=== PATIENT | female | born 1980 | race Caucasian/White ===

== ENCOUNTER 2024-12-13 10:13 | Emergency (ER) | payer MEDICARE, MEDICAID, SELFPAY ==
[2024-12-13 10:38] VITALS: BP 139/91; PULSE 81; RESP 15; TEMP 36.7; O2SAT 95; BMI 52.4
--- NOTE | 2024-12-13 11:59 | PC.NURSE ---
Addendum entered by Christine Mari R.N. 12/13/24 12:08: patient has rapid pressured speech. Original Note: patient discussing she goes to [facility] and receives fentanyl patch mcg every three days, patient states she requested to be weaned off the medication because a family from a fentanyl overdose patient states the clinic sends her medicine to the wrong pharmacy, she has requested a new one (old is [facility] in [place], patient states she wants to switch. patient also states she has conflicts with her 16 yo daughter (has ODD) patient does see Dr Ortiz for mental health at [facility].
[2024-12-13 12:27] LABS: Culture Indicated Urine Specimen Cultured
--- NOTE | 2024-12-13 13:21 | CM.SWNOTE ---
ED DIE CLEANER Note Patient is 44 y/o female who presents to the ED per recommendation from Psychiatrist's office due to concern that patient's is withdrawing from pain medication. Patient's Psychiatrist is Dr. Ortiz, patient has hx of Borderline Personality Disorder, JOHANN and Panic Disorder. Per EMR patient has significant hx of life stressors and trauma. DIE CLEANER enters room with RN and DIE CLEANER introduces self. Patient states she does not like sales service representative or social workers. Patient asks DIE CLEANER to leave. Patient gives consent to contact Dr. Ortiz's office, DIE CLEANER calls Dr. Ortiz's office and speaks with retail sales manager Geoffrey who reports that they recommended that patient present to ED due to concern for withdrawal symptoms. ED provider meets with patient and requests to speak with Dr. Ortiz as patient was not listening to ED provider's recommendations, it is reported that patient fired her PCP and does not trust physicians but trusts Dr. Ortiz. Dr. Ortiz presents to ED and meets with patient, patient is agreeable to plan. Patient to discharge to home upon medical clearance with outpatient follow up. Charlotte Perez, SLASHER OPERATOR
--- NOTE | 2024-12-13 13:38 | PM.CN.IH.1 ---
History of Present Illness Consult details Chief complaint: PSYCH/POTENTIAL OPIOID WITHDRAWAL Meds Home Medications and Allergies Home Medications ?Medication ?Instructions ?Recorded ?Confirmed ?Type cholecalciferol (vitamin D3) 25 2,000 unit PO DAILY 02/03/19 12/16/23 History mcg (1,000 unit) chewable tablet multivitamin 2 tab PO DAILY 02/03/19 12/16/23 History pramipexole 1 mg tablet 1 mg PO DAILY 02/03/19 12/16/23 History vitamin B complex (B Complex 1 1 tab PO DAILY 02/03/19 12/16/23 History tablet) omeprazole magnesium 20 mg 20 mg PO DAILY 06/27/19 12/16/23 History tablet,delayed release (Prilosec OTC) ascorbic acid (vitamin C) 500 mg 1,000 mg PO 01/24/20 12/16/23 History capsule naproxen 500 mg tablet 500 mg PO BID 01/30/21 12/16/23 History gabapentin 600 mg tablet 1,200 mg PO TID 12/16/23 History methocarbamol 500 mg tablet 750 mg PO BID PRN muscle pain 12/16/23 12/16/23 History fentanyl transdermal 06/16/24 History oxycodone 5 mg tablet 7.5 mg PO .COMPLEX PRN 06/16/24 History quetiapine 100 mg tablet 200 mg (2 x 100 mg) PO BEDTIME #60 07/12/24 Rx Held on 10/24/24. tabs Instructions: too sedating quetiapine 50 mg tablet 50 mg PO BID #60 tabs 07/12/24 Rx Held on 10/24/24. Instructions: too sedating with fentanyl clonazepam 2 mg tablet 2 mg PO BID PRN severe anxiety #60 10/24/24 10/24/24 Rx tabs duloxetine 60 mg capsule,delayed 60 mg PO BID #180 caps 10/24/24 10/24/24 Rx release fluoxetine 20 mg capsule (Prozac) 60 mg (3 x 20 mg) PO DAILY #270 10/24/24 10/24/24 Rx caps hydroxyzine HCl 25 mg tablet 50 mg (2 x 25 mg) PO TID PRN panic 10/24/24 10/24/24 Rx attacks #180 tabs Allergies Allergy/AdvReac Type Severity Reaction Status Date / Time bupropion Allergy Severe ITCHING Verified 12/13/24 10:38 prednisone Allergy Severe extreme Verified 12/13/24 10:38 itching Sulfa (Sulfonamide Allergy Intermediate rash, Verified 12/13/24 10:38 Antibiotics) burning ethinyl estradiol (From AdvReac Severe anaphylaxis Verified 12/13/24 10:38 Seasonale contraceptive) ketamine AdvReac Severe Agitated Verified 12/13/24 10:38 levonorgestrel (From AdvReac Severe anaphylaxis Verified 12/13/24 10:38 Seasonale contraceptive) naltrexone AdvReac Severe difficulty Verified 12/13/24 10:38 breathing - requiring CPAP during waking hours Exam Vital Signs (past 8 hours): - 12/13/24 10:38 Temperature 98.1 F Pulse Rate 81 Respiratory Rate 15 Blood Pressure 139/91 H Pulse Oximetry 95 Oxygen Delivery Method Room Air Oxygen Delivery Method Room Air Objective Labs Labs: Laboratory Results - last 24 hr 12/13/24 11:56 Urine RBC None seen Urine WBC 1-5/hpf Ur Squamous Epith Cells 5-10 /hpf H Urine Bacteria Many (>30) H Ur Culture Indicated? Specimen cultured Vol Urine Centrifuged 10ml (spun) [facility] Medical History (Updated 09/23/22 @ 12:58 by SHELBY Stevenson) Borderline personality disorder Tobacco & Substance Use Smoking Status: Current every day smoker Assessment & Plan Time-Based Coding :: [TOTAL MINUTES] spent with patient and on the chart (including review of chart, obtaining history, exam, reviewing outside data, placing orders, documenting exam and treatment plan, and counseling patient) on [DATE].
--- NOTE | 2024-12-13 14:15 | ED.PSYCH ---
HPI - Psych General Chief Complaint: Toxicology Problem Stated Complaint: PSYCH/POTENTIAL OPIOID WITHDRAWAL Time Seen by Provider: 12/13/24 10:35 Source: patient Mode of arrival: Wheelchair History of Present Illness HPI Narrative: 44-year-old female history of borderline personality disorder currently upset today due to being discharged from chronic pain management for being tapered off of fentanyl and oxycodone. She has fired her family doctor over disagreement of diagnosis of schizophrenia. She denies HI, SI, hearing voices or seeing things. She is argumentative, upset, and feels no one is listening to her. Other than what is stated 14 point review of system is negative. Related Data Home Medications ?Medication ?Instructions ?Recorded ?Confirmed cholecalciferol (vitamin D3) 25 2,000 unit PO DAILY 02/03/19 12/16/23 mcg (1,000 unit) chewable tablet multivitamin 2 tab PO DAILY 02/03/19 12/16/23 pramipexole 1 mg tablet 1 mg PO DAILY 02/03/19 12/16/23 vitamin B complex (B Complex 1 1 tab PO DAILY 02/03/19 12/16/23 tablet) omeprazole magnesium 20 mg 20 mg PO DAILY 06/27/19 12/16/23 tablet,delayed release (Prilosec OTC) ascorbic acid (vitamin C) 500 mg 1,000 mg PO 01/24/20 12/16/23 capsule naproxen 500 mg tablet 500 mg PO BID 01/30/21 12/16/23 gabapentin 600 mg tablet 1,200 mg PO TID 12/16/23 methocarbamol 500 mg tablet 750 mg PO BID PRN muscle pain 12/16/23 12/16/23 fentanyl transdermal 06/16/24 oxycodone 5 mg tablet 7.5 mg PO .COMPLEX PRN 06/16/24 Previous Rx's ?Medication ?Instructions ?Recorded quetiapine 100 mg tablet 200 mg (2 x 100 mg) PO BEDTIME #60 07/12/24 Held on 10/24/24. tabs Instructions: too sedating quetiapine 50 mg tablet 50 mg PO BID #60 tabs 07/12/24 Held on 10/24/24. Instructions: too sedating with fentanyl clonazepam 2 mg tablet 2 mg PO BID PRN severe anxiety #60 10/24/24 tabs duloxetine 60 mg capsule,delayed 60 mg PO BID #180 caps 10/24/24 release fluoxetine 20 mg capsule (Prozac) 60 mg (3 x 20 mg) PO DAILY #270 10/24/24 caps hydroxyzine HCl 25 mg tablet 50 mg (2 x 25 mg) PO TID PRN panic 10/24/24 attacks #180 tabs Allergies Allergy/AdvReac Type Severity Reaction Status Date / Time bupropion Allergy Severe ITCHING Verified 12/13/24 10:38 prednisone Allergy Severe extreme Verified 12/13/24 10:38 itching Sulfa (Sulfonamide Allergy Intermediate rash, Verified 12/13/24 10:38 Antibiotics) burning ethinyl estradiol (From AdvReac Severe anaphylaxis Verified 12/13/24 10:38 Seasonale contraceptive) ketamine AdvReac Severe Agitated Verified 12/13/24 10:38 levonorgestrel (From AdvReac Severe anaphylaxis Verified 12/13/24 10:38 Seasonale contraceptive) naltrexone AdvReac Severe difficulty Verified 12/13/24 10:38 breathing - requiring CPAP during waking hours Review of Systems Review of Systems ROS Unobtainable: All systems reviewed & are unremarkable except as noted in HPI and below Patient History Medical History (Updated 12/13/24 @ 14:22 by Primitivo Johns, ) Borderline personality disorder Social History Smoking Status: Current every day smoker Smoking Status: Current every day smoker Exam Narrative Exam Narrative: GENERAL: [84] year old patient appears stated age. Well-developed patient, in mild distress. HEAD: Atraumatic. Normocephalic. EYES: Pupils equal round and reactive. Extraocular motions intact. No scleral icterus. No injection or drainage. ENT: Nose without bleeding, purulent drainage. Throat without erythema, tonsillar hypertrophy or exudate. Airway patent. NECK: Trachea midline. Non tender CARDIOVASCULAR: Regular rate and rhythm without murmurs, gallops, or rubs. RESPIRATORY: Clear to auscultation. Breath sounds equal bilaterally. No wheezes, rales, or rhonchi. GASTROINTESTINAL: Abdomen soft, non-tender, nondistended. EXTREMITIES: No edema or joint tenderness. BACK: Nontender without deformity or crepitance. No flank tenderness. NEURO: AOx3. SKIN: No rash or erythema of visible areas Initial Vital Signs Initial Vital Signs: Vital Signs Temperature 98.1 F 12/13/24 10:38 Pulse Rate 81 12/13/24 10:38 Respiratory Rate 15 12/13/24 10:38 Blood Pressure 139/91 H 12/13/24 10:38 Pulse Oximetry 95 12/13/24 10:38 Oxygen Delivery Method Room Air 12/13/24 10:38 Psych Appearance: grossly normal Mental Status: mental status grossly normal Speech and Movement: speech and movement normal Mood: irritable mood Affect: irritable affect Attitude: cooperative Thought Content: normal Judgment: fair Course Orders Ordered: ED Orders 12/13/24 10:46 Consult to METAL FINISH INSPECTOR - Car Body Designer Stat 12/13/24 11:56 Urine Culture Stat Urine Microscopic Stat Vital Signs Vital signs: Vital Signs - 8 hr 12/13/24 10:38 Temperature 98.1 F Pulse Rate 81 Respiratory Rate 15 Blood Pressure 139/91 H Pulse Oximetry 95 Oxygen Delivery Method Room Air MDM - Psych Lab Data Labs: Lab Results 12/13/24 Range/Units 11:56 Urine RBC None seen (0-5/HPF) Urine WBC 1-5/hpf (0-5/HPF) Ur Squamous Epith Cells 5-10 /hpf H (0-5/HPF) Urine Bacteria Many (>30) H (None) Ur Culture Indicated? Specimen cultured Vol Urine Centrifuged 10ml (spun) Point of Care Testing Test Results Negative Urine Dip Bedside Urine Glucose Negative Bedside Urine Bilirubin - Negative Bedside Urine Ketone - Negative Urine Specific [place] 1.010 Bedside Urine Occult Blood - Negative Bedside Urine pH 6.0 Bedside Urine Protein - Negative Bedside Urine Urobilinogen - Negative Bedside Urine Nitrite - Negative Bedside Urine Leukocytes + 70 Esterase MDM Narrative Medical decision making narrative: Vital signs, nurse triage note, medication list, previous ER visits, all imaging studies reviewed. Dr. Ortiz as graciously seen patient and in the ER ok for d/c to f/u with him outpatient appointment next week as previously scheduled. Discharge Plan Departure Patient Disposition: Home Clinical Impression: Borderline personality disorder Instructions: Borderline Personality Disorder Activity Restrictions/Additional Instructions: Return with new or worsening symptoms. Follow up with Dr. Joseph at your scheduled appointment. Prescriptions: No Action methocarbamol 500 mg tablet 750 mg PO BID PRN (Reason: muscle pain) Prilosec OTC 20 mg tablet,delayed release (DR/EC) 20 mg PO DAILY ascorbic acid (vitamin C) 500 mg capsule 1,000 mg PO naproxen 500 mg tablet 500 mg PO BID pramipexole 1 mg tablet 1 mg PO DAILY multivitamin tablet,chewable 2 tab PO DAILY cholecalciferol (vitamin D3) 1,000 unit tablet,chewable 2,000 unit PO DAILY vitamin B complex [B Complex 1] tablet 1 tab PO DAILY gabapentin 600 mg tablet 1,200 mg PO TID Rx Instructions: Take with 400 mg cap for dose of 1000 mg. clonazepam 2 mg tablet 2 mg PO BID PRN (Reason: severe anxiety) Qty: 60 0RF duloxetine 60 mg capsule,delayed release(DR/EC) 60 mg PO BID Qty: 180 3RF fluoxetine [Prozac] 20 mg capsule 60 mg PO DAILY Qty: 270 3RF Rx Instructions: Take with food hydroxyzine HCl 25 mg tablet 50 mg PO TID PRN (Reason: panic attacks) Qty: 180 3RF fentanyl transdermal oxycodone 5 mg tablet 7.5 mg PO .COMPLEX PRN Rx Instructions: 7.5 mg orally PRN; quetiapine 100 mg tablet 200 mg PO BEDTIME Qty: 60 2RF quetiapine 50 mg tablet 50 mg PO BID Qty: 60 2RF Referrals: Isidoro Hebert DO [Primary Care Provider, Family Practice] Stand Alone Forms: Patient Portal/API
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
== END 2024-12-13 14:25 | disposition home or self-care (01) ==
PROVIDERS: Emergency Provider Family Medicine; PCP Family Medicine
DX: F60.3 Borderline personality disorder (principal)
CPT/HCPCS: 81003; 81015; 81025; 87086; 99282; 99283

== ENCOUNTER 2025-03-26 08:36 | Emergency (ER) | payer MEDICARE, MEDICAID, SELFPAY ==
[2025-03-26] VITALS (11 sets, daily range): BP systolic 101–145; BP diastolic 57–79; PULSE 68–97; RESP 15–22; O2SAT 92–97; BMI 52.9
--- NOTE | 2025-03-26 08:43 | EKG_ITS ---
[address] [address] Test Date: 2025-03-26 Pat Name: Kaley Fuchs Department: Room: Gender: Female Beam Worker: ZHANG : 1980 Requested By: Order Number: [id number] Reading MD: Primitivo Mason MD Measurements Intervals [place] Rate: 87 P: 65 AR: 130 QRS: 23 QRSD: 96 T: 49 QT: 352 QTc: 423 Interpretive Statements Normal sinus rhythm Electronically Signed On 03-26-2025 11:57:25 PDT by Primitivo Mason MD
--- NOTE | 2025-03-26 08:50 | ED.CHESTPAIN ---
HPI - Chest Pain General Chief Complaint: Chest Pain Stated Complaint: Chest pain today Time Seen by Provider: 03/26/25 08:50 Source: patient Mode of arrival: Wheelchair Limitations: no limitations History of Present Illness HPI narrative: 45-year-old female patient with a history of anxiety/depression/panic disorder/PTSD/personality disorder with chronic pain issues including chronic back pain. She was here to see her psychiatrist, Dr. ortiz. She reported that she was having sharp lower substernal/chest wall pain for 1 hour. He had her sent to the ER. Patient describes sharp and pressure pain pointing to the lower sternum this started an hour ago. She has had mild shortness of breath and some nausea but no vomiting or diaphoresis. No previous cardiac problems. She admits to increased stress. Related Data Home Medications ?Medication ?Instructions ?Recorded ?Confirmed cholecalciferol (vitamin D3) 25 2,000 unit PO DAILY 02/03/19 12/16/23 mcg (1,000 unit) chewable tablet multivitamin 2 tab PO DAILY 02/03/19 12/16/23 pramipexole 1 mg tablet 1 mg PO DAILY 02/03/19 12/16/23 vitamin B complex (B Complex 1 1 tab PO DAILY 02/03/19 12/16/23 tablet) omeprazole magnesium 20 mg 20 mg PO DAILY 06/27/19 12/16/23 tablet,delayed release (Prilosec OTC) ascorbic acid (vitamin C) 500 mg 1,000 mg PO 01/24/20 12/16/23 capsule naproxen 500 mg tablet 500 mg PO BID 01/30/21 12/16/23 gabapentin 600 mg tablet 1,200 mg PO TID 12/16/23 methocarbamol 500 mg tablet 750 mg PO BID PRN muscle pain 12/16/23 12/16/23 fentanyl transdermal 06/16/24 oxycodone 5 mg tablet 7.5 mg PO .COMPLEX PRN 06/16/24 Previous Rx's ?Medication ?Instructions ?Recorded quetiapine 100 mg tablet 200 mg (2 x 100 mg) PO BEDTIME #60 07/12/24 tabs duloxetine 60 mg capsule,delayed 60 mg PO BID #180 caps 10/24/24 release fluoxetine 20 mg capsule (Prozac) 60 mg (3 x 20 mg) PO DAILY #270 10/24/24 caps hydroxyzine HCl 25 mg tablet 50 mg (2 x 25 mg) PO TID PRN panic 10/24/24 attacks #180 tabs quetiapine 50 mg tablet 50 - 200 mg (1 - 4 x 50 mg) PO TID 03/20/25 PRN severe agitation #360 tabs clonazepam 1 mg tablet 1 - 2 mg (1 - 2 x 1 mg) PO TID PRN 03/23/25 anxiety #60 tabs Allergies Allergy/AdvReac Type Severity Reaction Status Date / Time bupropion Allergy Severe ITCHING Verified 12/13/24 10:38 prednisone Allergy Severe extreme Verified 12/13/24 10:38 itching Sulfa (Sulfonamide Allergy Intermediate rash, Verified 12/13/24 10:38 Antibiotics) burning ethinyl estradiol (From AdvReac Severe anaphylaxis Verified 12/13/24 10:38 Seasonale contraceptive) ketamine AdvReac Severe Agitated Verified 12/13/24 10:38 levonorgestrel (From AdvReac Severe anaphylaxis Verified 12/13/24 10:38 Seasonale contraceptive) naltrexone AdvReac Severe difficulty Verified 12/13/24 10:38 breathing - requiring CPAP during waking hours Review of Systems Review of Systems ROS Unobtainable: All systems reviewed & are unremarkable except as noted in HPI and below Cardiovascular Cardiovascular: Reports as per HPI Respiratory Respiratory: Reports as per HPI Psychiatric Psychiatric: Reports as per HPI Patient History Medical History Borderline personality disorder Social History Smoking Status: Current every day smoker Smoking Status: Current every day smoker tobacco type: cigarettes and e-cigarettes Exam Narrative Exam Narrative: General: Alert and conversant. No distress. Appears well nourished and well hydrated Craniofacial: No evidence of trauma. Nontender and no swelling. Eyes: PERRLA EOMI conjunctiva bobby Lungs: Clear to auscultation with good air movement. No wheezing, rales or rhonchi. No respiratory distress Cardiac: Regular rate and rhythm with no appreciable murmur or gallop Abdomen: Soft, nontender with no distention or masses. Normal bowel sounds. No rebound or guarding Musculoskeletal: Tenderness to palpation over the lower sternum which duplicates her symptoms. Otherwise Exam of the extremities, axial spine and ribcage reveals no deformity, bony tenderness or swelling. Range of motion intact Neuro: Alert and oriented. Cranial nerves, motor, sensory and cerebellar all grossly intact. No focal deficit Skin: Warm and normal color. No rashes Psychological: Normal affect and interaction. No evidence of delusion or psychosis. Normal mood. Initial Vital Signs Initial Vital Signs: Vital Signs Pulse Rate 87 03/26/25 08:42 Respiratory Rate 18 03/26/25 08:42 Blood Pressure 145/79 H 03/26/25 08:42 Pulse Oximetry 97 03/26/25 08:42 Oxygen Delivery Method Room Air 03/26/25 08:42 Course Orders Ordered: ED Orders 03/26/25 08:43 EKG-12 Lead Routine 03/26/25 08:52 Trop I [Troponin I] Stat 03/26/25 11:05 Trop I [Troponin I] Stat Vital Signs Vital signs: Vital Signs - 8 hr 03/26/25 08:42 03/26/25 08:44 03/26/25 09:00 Pulse Rate 87 97 H Respiratory Rate 18 Blood Pressure 145/79 H 134/59 L Pulse Oximetry 97 97 Oxygen Delivery Method Room Air 03/26/25 09:00 03/26/25 09:30 03/26/25 09:31 Pulse Rate 86 71 Respiratory Rate 18 18 Blood Pressure 103/57 L Pulse Oximetry 97 92 Oxygen Delivery Method 03/26/25 09:31 03/26/25 10:00 03/26/25 10:00 Pulse Rate 72 68 Respiratory Rate 17 16 Blood Pressure 114/62 Pulse Oximetry 93 94 Oxygen Delivery Method 03/26/25 10:30 03/26/25 10:30 03/26/25 11:00 Pulse Rate 72 70 Respiratory Rate 15 16 Blood Pressure 101/72 Pulse Oximetry 96 97 Oxygen Delivery Method 03/26/25 11:01 03/26/25 11:01 03/26/25 11:30 Pulse Rate 71 Respiratory Rate 18 Blood Pressure 115/62 118/65 Pulse Oximetry 96 Oxygen Delivery Method 03/26/25 11:30 Pulse Rate 71 Respiratory Rate 22 Blood Pressure Pulse Oximetry 96 Oxygen Delivery Method MDM - Chest Pain Lab Data Attestation: I reviewed the patient's lab results. (Troponin x2 is negative) Labs: Lab Results 03/26/25 03/26/25 Range/Units 08:52 11:05 Troponin I < 0.012 < 0.012 (0.01-0.034) ng/mL ECG Data Attestation: I personally reviewed and interpreted this ECG as follows: (Sinus rhythm. Rate 87. Normal axis and intervals. No ischemic changes.) [facility] Narrative Medical decision making narrative: Patient has atypical sharp chest pain at the lower sternum with stress and anxiety. Negative enzymes x2 and EKG reassuring and unremarkable. This does not appear to be cardiac or pulmonary. Appears to be stress related chest symptoms. Patient needs no further workup in the ER based on this. She was given instructions on home management and follow up with her mental health care provider and primary care. Return to the ER if worse Discharge Plan Departure Patient Disposition: Home Clinical Impression: Atypical chest pain, Anxiety Instructions: DI for Atypical Chest Pain, DI for Anxiety -- Adult Activity Restrictions/Additional Instructions: Plan: Stress and anxiety reduction. Follow up with your mental health provider and your primary care provider to address these problems. Return to the ER if worse. Prescriptions: No Action methocarbamol 500 mg tablet 750 mg PO BID PRN (Reason: muscle pain) Prilosec OTC 20 mg tablet,delayed release (DR/EC) 20 mg PO DAILY ascorbic acid (vitamin C) 500 mg capsule 1,000 mg PO naproxen 500 mg tablet 500 mg PO BID pramipexole 1 mg tablet 1 mg PO DAILY multivitamin tablet,chewable 2 tab PO DAILY cholecalciferol (vitamin D3) 1,000 unit tablet,chewable 2,000 unit PO DAILY vitamin B complex [B Complex 1] tablet 1 tab PO DAILY gabapentin 600 mg tablet 1,200 mg PO TID Rx Instructions: Take with 400 mg cap for dose of 1000 mg. duloxetine 60 mg capsule,delayed release(DR/EC) 60 mg PO BID Qty: 180 3RF fluoxetine [Prozac] 20 mg capsule 60 mg PO DAILY Qty: 270 3RF Rx Instructions: Take with food hydroxyzine HCl 25 mg tablet 50 mg PO TID PRN (Reason: panic attacks) Qty: 180 3RF fentanyl transdermal oxycodone 5 mg tablet 7.5 mg PO .COMPLEX PRN Rx Instructions: 7.5 mg orally PRN; quetiapine 100 mg tablet 200 mg PO BEDTIME Qty: 60 2RF quetiapine 50 mg tablet 50 - 200 mg PO TID PRN (Reason: severe agitation) Qty: 360 2RF clonazepam 1 mg tablet 1 - 2 mg PO TID PRN (Reason: anxiety) Qty: 60 0RF Referrals: Isidoro Hebert DO [Primary Care Provider, Family Practice] Stand Alone Forms: Patient Portal/API
--- NOTE | 2025-03-26 09:03 | PC.NURSE ---
pt arrives from psychiatric appt reporting mid epigastric chest pain which started this am pt states it is a stabbing pain which started after she drank a monster. denies typical caffeine use. pressured speech noted.
[2025-03-26 09:25] LABS: Troponin I < 0.012 ng/mL (0.01-0.034)
[2025-03-26 11:34] LABS: Troponin I < 0.012 ng/mL (0.01-0.034)
== END 2025-03-26 12:14 | disposition home or self-care (01) ==
PROVIDERS: Emergency Provider Emergency Medicine; PCP Family Medicine
DX: R07.89 Other chest pain (principal); F41.9 Anxiety disorder, unspecified
CPT/HCPCS: 36415; 84484; 93005; 99283; 99284